=== PATIENT | female | born 1985 | race African-American/Black ===

== ENCOUNTER 2024-10-27 01:44 | Inpatient (IN) | payer OTHER ==
[2024-10-27 01:56] VITALS: BMI 30.1
[2024-10-27] MEDS ORDERED: ALBUTEROL SO4 0.083% IH SOL 2.5 MG/3 ML VIAL.NEB. NEB ONE ×3 (02:24→06:19)
[2024-10-27] MEDS ORDERED: EPINEPHrine 1:1,000 1,000 MCG/ML ML IV ONE (02:26)
[2024-10-27] MEDS: ALBUTEROL SO4 0.042% IH SOL 1.25 MG/3 ML VIAL.NEB NEB ONE (02:34)
[2024-10-27] MEDS ORDERED: EPINEPHrine 1:1000 P/F - 1 MG/ML AMP ONE (02:35)
[2024-10-27] MEDS: ALBUTEROL SO4 0.083% IH SOL 2.5 MG/3 ML VIAL.NEB. NEB SCH (02:35)
[2024-10-27] MEDS: EPINEPHrine 1:1,000 1,000 MCG/ML ML IM ONE (02:56)
[2024-10-27 03:36] LABS: BASO % 0.4 % (0-2.0); EOS % 7.7 % (0-4.5); HEMATOCRIT 38.8 % (32.4-45.2); HEMOGLOBIN 12.5 GM/dL (10.7-15.3); LYMPH % 17.7 % (8-40); MCH 29.6 pg (25.7-33.7); MCHC 32.2 g/dl (32.0-36.0); MEAN PLT VOLUME 8.9 fl (7.5-11.1); MONO % 3.6 % (3.8-10.2); NEUT % 70.6 % (42.8-82.8); PLATELET COUNT 223 10^3/uL (134-434); RBC 4.22 M/mm3 (3.60-5.2); RDW 14.8 % (11.6-15.6); WHITE BLOOD COUNT 4.6 K/mm3 (4.0-10.0)
[2024-10-27 03:56] LABS: POTASSIUM 3.1 mmol/L (3.5-5.1)
[2024-10-27 03:58] LABS: CALCIUM 8.3 mg/dL (8.5-10.1)
[2024-10-27 03:59] LABS: ALBUMIN 2.9 g/dl (3.4-5.0); BLOOD UREA NITROGEN 3.5 mg/dL (7-18); MAGNESIUM 3.2 mg/dL (1.8-2.4)
[2024-10-27 04:02] LABS: CREATININE 0.6 mg/dL (0.55-1.3)
[2024-10-27 04:03] LABS: BILIRUBIN,TOTAL 0.6 mg/dL (0.2-1); TOT PROT 5.7 g/dl (6.4-8.2)
[2024-10-27 04:32] LABS: VENOUS BASE EXCESS -3.4 mmol/L (-2-2); VENOUS O2 SATURATION 97.6 % (70-80); VENOUS PCO2 24.2 mmHg (38-52); VENOUS PH 7.491 (7.310-7.410)
[2024-10-27] MEDS ORDERED: ONDANSETRON 4 MG/2 ML VIAL ONE (05:13)
[2024-10-27] MEDS ORDERED: POTASSIUM CHLORIDE ORAL LIQUID 20 MEQ/15 ML ONE (05:13)
[2024-10-27] MEDS: ONDANSETRON 4 MG/2 ML VIAL IVPUSH ONE (05:22)
[2024-10-27] MEDS: POTASSIUM CHLORIDE ORAL LIQUID 20 MEQ/15 ML PO ONE (05:43)
[2024-10-27] MEDS ORDERED: ALBUTEROL SO4 2.5/IPRATROPIUM 0.5 INH SOL 3 ML VIAL.NEB. NEB ONE ×2 (07:55→12:17)
[2024-10-27] MEDS ORDERED: LORazepam 2 MG/ML SDV VIAL ONE (07:57)
[2024-10-27] MEDS: LORazepam 2 MG/ML SDV VIAL IVPUSH ONE (08:10)
[2024-10-27] MEDS ORDERED: ENOXAPARIN NA (PORCINE) 40 MG/0.4 ML DISP.SYRIN SQ ONE (10:19)
[2024-10-27] MEDS ORDERED: methylPREDNISolone NA SUCC 40 MG/1 ML VIAL ONE (10:19)
[2024-10-27] MEDS: ENOXAPARIN NA (PORCINE) 40 MG/0.4 ML DISP.SYRIN SQ SCH (10:28)
[2024-10-27] MEDS: methylPREDNISolone NA SUCC 40 MG/1 ML VIAL IVPUSH SCH (10:28)
[2024-10-27] MEDS: ALBUTEROL SO4 2.5/IPRATROPIUM 0.5 INH SOL 3 ML VIAL.NEB. NEB SCH (12:40)
[2024-10-27 13:06] LABS: CHLORIDE 108 mmol/L (98-107); SODIUM 134 mmol/L (136-145)
[2024-10-27 13:08] LABS: CALCIUM 8.8 mg/dL (8.5-10.1); CO2 19 mmol/L (21-32); GLUCOSE,RANDOM 219 mg/dL (74-106)
[2024-10-27 13:09] LABS: BLOOD UREA NITROGEN 6.7 mg/dL (7-18)
[2024-10-27 13:12] LABS: CREATININE 0.8 mg/dL (0.55-1.3)
[2024-10-27 13:27] LABS: ANION GAP 7 mmol/L (4-13); POTASSIUM 6.6 mmol/L (3.5-5.1)
[2024-10-27] MEDS: FLUTICASONE/UMECLIDIN/VILANTER(200-62.5-25 TRELEGY ELLIPTA) INAHLER IH SCH (16:43)
[2024-10-27] MEDS: INSULIN ASPART SLIDING SCALE (NOVOLOG) 1 VIAL SQ SCH (16:44)
[2024-10-27] MEDS: BUDESONIDE/FORMETEROL FUMARATE 160/4.5 mcg INHALER IH SCH (16:44)
[2024-10-27 17:21] VITALS: RESP 18
[2024-10-27 19:43] LABS: POTASSIUM 4.5 mmol/L (3.5-5.1)
[2024-10-27 19:44] LABS: CALCIUM 8.9 mg/dL (8.5-10.1)
[2024-10-27 19:45] LABS: BLOOD UREA NITROGEN 5.9 mg/dL (7-18)
[2024-10-27 19:48] LABS: CREATININE 0.8 mg/dL (0.55-1.3)
[2024-10-27] MEDS: MONTELUKAST NA 10 MG TABLET PO SCH (21:34)
[2024-10-28 06:52] VITALS: TEMP 97.3
[2024-10-28 08:24] LABS: HEMATOCRIT 39.4 % (32.4-45.2); HEMOGLOBIN 12.5 GM/dL (10.7-15.3); MCH 29.7 pg (25.7-33.7); MCHC 31.7 g/dl (32.0-36.0); MEAN CELL VOLUME 93.6 fl (80-96); MEAN PLT VOLUME 9.5 fl (7.5-11.1); PLATELET COUNT 238 10^3/uL (134-434); RBC 4.21 M/mm3 (3.60-5.2); RDW 15.1 % (11.6-15.6)
[2024-10-28 08:26] LABS: POTASSIUM 4.6 mmol/L (3.5-5.1)
[2024-10-28 08:29] LABS: ALBUMIN 3.2 g/dl (3.4-5.0); BLOOD UREA NITROGEN 8.6 mg/dL (7-18)
[2024-10-28 08:32] LABS: CREATININE 0.6 mg/dL (0.55-1.3); PHOSPHOROUS 2.8 mg/dL (2.5-4.9)
[2024-10-28 08:34] LABS: BILIRUBIN,TOTAL 0.4 mg/dL (0.2-1); TOT PROT 6.3 g/dl (6.4-8.2)
[2024-10-28 15:13] VITALS: PULSE 68
[2024-10-28 17:59] VITALS: BP 116/69
[2024-10-28] MEDS ORDERED: BUDESONIDE/FORMETEROL FUMARATE 160/4.5 mcg INHALER IH SCH (22:00)
== END 2024-10-28 17:59 | disposition home or self-care (01) | DRG 141 ==
LOC: JER 01:44 → JERBED 04:41 → J4W 15:16
PROVIDERS: ADMIT Internal Medicine; ATTEND Internal Medicine
DX: J45.41 Moderate persistent asthma with (acute) exacerbation (principal); E87.3 Alkalosis; E87.6 Hypokalemia; F41.9 Anxiety disorder, unspecified; R00.0 Tachycardia, unspecified
CPT/HCPCS: 0241U-QW; 36415; 71045-TC-FY; 80048; 80053; 82803; 83036; 83735; 84100; 84703; 85025; 85027; 93005; 93010; 94150; 94640; 99285-25

== ENCOUNTER 2024-12-24 02:34 | Inpatient (IN) | payer OTHER ==
[2024-12-24 02:46] VITALS: BMI 31.4
[2024-12-24] MEDS ORDERED: methylPREDNISolone NA SUCC 125 MG/2 ML VIAL ONE (02:47)
[2024-12-24] MEDS ORDERED: MAGNESIUM 1GM/D5W - 1 GM/100 ML IVPB IVPB ONE (02:48)
[2024-12-24] MEDS: ALBUTEROL SO4 2.5/IPRATROPIUM 0.5 INH SOL 3 ML VIAL.NEB. NEB SCH ×2 (03:13→07:50)
[2024-12-24] MEDS: methylPREDNISolone NA SUCC 125 MG/2 ML VIAL IVPUSH ONE (03:13)
[2024-12-24] MEDS: MAGNESIUM SULF 50% (8.12 MEQ/2 ML-1 GM VIAL) IVPB ONE (03:14)
[2024-12-24] MEDS ORDERED: TERBUTALINE SULFATE 1 MG/1 ML VIAL SQ ONE (03:20)
[2024-12-24] MEDS ORDERED: ALBUTEROL SO4 0.083% IH SOL 2.5 MG/3 ML VIAL.NEB. NEB ONE (03:20)
[2024-12-24] MEDS: ALBUTEROL SO4 0.083% IH SOL 2.5 MG/3 ML VIAL.NEB. NEB ONE (03:27)
[2024-12-24] MEDS: TERBUTALINE SULFATE 1 MG/1 ML VIAL SQ ONE (03:27)
[2024-12-24] MEDS: LACTATED RINGERS SOLUTION 1000 ML INFUS.BAG IV ONE (03:55)
[2024-12-24 04:42] LABS: VENOUS BASE EXCESS -1.2 mmol/L (-2-2); VENOUS O2 SATURATION 94.5 % (70-80); VENOUS PCO2 31.2 mmHg (38-52); VENOUS PH 7.458 (7.310-7.410)
[2024-12-24 04:43] LABS: ABSOLUTE IMMATURE GRANULOCYTES 0.01 x10^3/uL (0.0-0.031); BASOPHILS # 0.02 x10^3/uL (0.01-0.08); EOSINOPHIL % 10.6 % (0.7-5.8); EOSINOPHILS # 0.64 x10^3/uL (0.04-0.36); HEMATOCRIT 35.3 % (34.1-44.9); HEMOGLOBIN 11.1 g/dL (11.2-15.7); MCHC 31.4 g/dl (32.2-35.5); MEAN CELL VOLUME 92.2 fl (79.4-94.8); MEAN PLT VOLUME 10.5 fl (9.4-12.3); MONOCYTE # 0.54 x10^3/uL (0.24-0.86); PLATELET COUNT 317 x10^3/uL (182-369); RDW 14.2 % (12.1-16.8)
[2024-12-24 05:02] LABS: POTASSIUM 3.6 mmol/L (3.5-5.1)
[2024-12-24 05:04] LABS: CALCIUM 8.4 mg/dL (8.5-10.1)
[2024-12-24 05:05] LABS: BLOOD UREA NITROGEN 9.7 mg/dL (7-18)
[2024-12-24 05:08] LABS: CREATININE 0.6 mg/dL (0.55-1.3)
[2024-12-24 05:10] LABS: BILIRUBIN,TOTAL 0.2 mg/dL (0.2-1); TOT PROT 5.8 g/dl (6.4-8.2)
[2024-12-24] MEDS ORDERED: ALBUTEROL SO4 HFA INHALER IH PRN (06:08)
[2024-12-24 06:30] LABS: MAGNESIUM 2.3 mg/dL (1.8-2.4)
[2024-12-24] MEDS: methylPREDNISolone NA SUCC 40 MG/1 ML VIAL IVPUSH SCH (09:16)
[2024-12-24] MEDS ORDERED: CEFTRIAXONE 500 MG in DEXTROSE 5%-WATER - 50 ML IVPB ONE (09:24)
[2024-12-24] MEDS: CEFTRIAXONE 1 G/50 ML PREMIX 50 ML IVPB SCH (10:44)
[2024-12-24] MEDS: ENOXAPARIN NA (PORCINE) 40 MG/0.4 ML DISP.SYRIN SQ SCH (10:54)
[2024-12-24] MEDS: POTASSIUM CHLORIDE TABS 20 MEQ TABLET.ER (FP) PO ONE (10:55)
[2024-12-24] MEDS: AZITHROMYCIN IVPB 500 MG/250 ML BAG IVPB ONE (10:56)
[2024-12-24] MEDS: FLUTICASONE/UMECLIDIN/VILANTER(200-62.5-25 TRELEGY ELLIPTA) INAHLER IH SCH (10:56)
[2024-12-24 11:42] VITALS: BP 94/38; RESP 19; TEMP 97.7
[2024-12-24 14:24] LABS: PH,URINE 5.5 (5.0-8.0); URINE APPEARANCE CLEAR; URINE BILIRUBIN NEGATIVE (NEGATIVE); URINE COLOR YELLOW; URINE GLUCOSE (UA) NEGATIVE (NEGATIVE); URINE KETONE TRACE (NEGATIVE); URINE LEUK ESTERASE NEGATIVE (NEGATIVE); URINE NITRITE NEGATIVE (NEGATIVE); URINE PROTEIN TRACE (NEGATIVE); URINE UROBILINOGEN 0.2 mg/dL (0.2-1.0)
[2024-12-24 15:09] VITALS: PULSE 97
[2024-12-24] MEDS ORDERED: ACETAMINOPHEN 325 MG TABLET (FP) PO PRN (15:29)
[2024-12-24] MEDS ORDERED: MONTELUKAST NA 5 MG TAB.CHEW PO SCH (22:00)
[2024-12-25] MEDS ORDERED: AZITHROMYCIN IVPB 250 MG in DEXTROSE 5%-WATER - 250 ML IVPB SCH (10:00)
== END 2024-12-24 17:15 | disposition left against medical advice (07) | DRG 133 ==
LOC: JER 02:34 → JERBED 03:44 → J2W 06:45
PROVIDERS: ADMIT Internal Medicine; ATTEND Nurse Practitioner Acute Care
DX: J96.01 Acute respiratory failure with hypoxia (principal); J45.901 Unspecified asthma with (acute) exacerbation; E66.811 Obesity, class 1; R05.9 Cough, unspecified
CPT/HCPCS: 0241U-QW; 36415; 71045-TC-FY; 80053; 81003; 82803; 83735; 84703; 85025; 94640; 99285-25